=== PATIENT | male | born 1965 | race Caucasian/White ===

== ENCOUNTER 2020-08-22 23:20 | Day surgery (SDCO) | payer OTHER ==
[2020-08-22 23:44] LABS: BASOPHIL 0.3 % (0-2); EOSINOPHIL 0.9 % (0-5); HCT 36.3 % (42.0-52.0); HGB 12.1 g/dl (13.2-18.0); LYMPHOCYTE 9.8 % (15-48); MCH 30.9 pg (25.0-31.0); MCHC 33.3 g/dL (32.0-36.0); MCV 92.6 fL (78.0-100.0); MONOCYTE 4.9 % (0-12); MPV 10.8 fL (6.0-9.5); NEUTROPHIL 83.8 % (41-80); NRBC 0; PLT 220 K/uL (150-400); RBC 3.92 M/uL (4.70-6.00); RDW 14.1 % (11.5-14.0); WBC 9.6 K/uL (4.0-10.5)
[2020-08-22 23:54] LABS: INR 1.09 (0.9-1.2); PROTHROMBIN TIME 13.4 SECONDS (11.4-13.6)
[2020-08-22 23:55] LABS: PTT 30.6 SECONDS (22.2-34.7)
[2020-08-23 00:17] LABS: ALBUMIN 3.7 g/dL (3.4-5.0); BILIRUBIN - TOTAL 0.6 mg/dL (0.2-1.0); BUN/CREAT RATIO (CALC) 12.9 RATIO; CREATININE 1.01 mg/dL (0.67-1.17); GLOBULIN (CALCULATION) 3.1 g/dL; MAGNESIUM 2.1 mg/dL (1.8-2.4); POTASSIUM 3.5 mmol/L (3.5-5.1); TOTAL PROTEIN 6.8 g/dL (6.4-8.2)
[2020-08-23 00:22] LABS: LACTIC ACID 1.8 mmol/L (0.4-1.9)
[2020-08-23 00:23] LABS: CKMB 1.9 ng/mL (0.0-3.6)
[2020-08-23 01:11] LABS: BILIRUBIN NEGATIVE (NEGATIVE); BLOOD NEGATIVE Ery/uL (NEGATIVE); CLARITY CLEAR (CLEAR); COLOR YELLOW (YELLOW); GLUCOSE (U) NORMAL (NORMAL); LEUKOCYTES NEGATIVE Leu/uL (NEGATIVE); NITRITE NEGATIVE (NEGATIVE); PROTEIN NEGATIVE (NEGATIVE); UROBILINOGEN 0.2 mg/dL (0.2-1.0); pH 6.5 (5.0-9.0)
[2020-08-23] MEDS ORDERED: MELATONIN5 M2 PO (13:51)
[2020-08-23] MEDS ORDERED: NEURONTIN100 MG PO (13:52)
[2020-08-23] MEDS ORDERED: BRILINTA90 MG PO (13:53)
[2020-08-23] MEDS ORDERED: ASPIRIN CHEWABL81 MG PO (13:53)
[2020-08-23] MEDS ORDERED: RANEXA500 MG PO (13:54)
[2020-08-23] MEDS ORDERED: ELAVIL50 MG PO (13:54)
[2020-08-23] MEDS ORDERED: QUETIAPINE FUM300 M1 PO (13:56)
[2020-08-23] MEDS ORDERED: COLESTIPOL HCL1 GM PO (13:58)
[2020-08-23] MEDS ORDERED: LEXAPRO20 M1 PO (13:59)
[2020-08-23] MEDS ORDERED: LOPRESSOR50 MG PO (14:01)
[2020-08-23] MEDS ORDERED: ZESTRIL5 MG PO (14:02)
[2020-08-23] MEDS ORDERED: BUSPAR5 MG PO (14:04)
[2020-08-23] MEDS ORDERED: COLACE100 MG PO (14:05)
[2020-08-23] MEDS ORDERED: LIPITOR40 MG PO (14:05)
[2020-08-24 06:18] LABS: BUN/CREAT RATIO (CALC) 22.9 RATIO; CREATININE 1.09 mg/dL (0.67-1.17); POTASSIUM 4.1 mmol/L (3.5-5.1)
[2020-08-24 06:20] LABS: BASOPHIL 0.1 % (0-2); EOSINOPHIL 0 % (0-5); HCT 38.8 % (42.0-52.0); HGB 12.9 g/dl (13.2-18.0); LYMPHOCYTE 2.3 % (15-48); MCH 30.5 pg (25.0-31.0); MCHC 33.2 g/dL (32.0-36.0); MCV 91.7 fL (78.0-100.0); MONOCYTE 3.3 % (0-12); MPV 11.2 fL (6.0-9.5); NRBC 0; PLT 280 K/uL (150-400); RBC 4.23 M/uL (4.70-6.00); RDW 14.6 % (11.5-14.0)
[2020-08-24 06:21] LABS: NEUTROPHIL 92.7 % (41-80); WBC 22.1 K/uL (4.0-10.5)
[2020-08-24 06:23] LABS: PRO-BNP 2481 pg/mL (<125)
[2020-08-24] MEDS ORDERED: MEDROL 4MG DOSEP4 MG PO (09:09)
[2020-08-24] MEDS ORDERED: FUROSEMIDE 20MG20 MG PO (09:09)
[2020-08-24] MEDS ORDERED: PANTOPRAZOLE SO40 MG PO (09:09)
--- NOTE | 2020-08-24 09:34 | NUR ---
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
--- NOTE | 2020-08-24 11:01 | NUR ---
1100 IV DC'D AT THIS TIME. DISCHARGE INSTRUCTIONS DISCUSSED WITH PT, VERBALIZED UNDERSTANDING. PT TRANSPORTED VIA WHEELCHAIR TO [facility] PER TECH.
== END 2020-08-24 11:02 | disposition home or self-care (01) ==
LOC: FER 23:20 → FTCU 08-23 02:02
PROVIDERS: Emergency Medicine; Internal Medicine; ADMIT Hospitalist
DX: I25.10 Atherosclerotic heart disease of native coronary artery without angina pectoris (principal); J44.1 Chronic obstructive pulmonary disease with (acute) exacerbation; F41.9 Anxiety disorder, unspecified; F32.9 Major depressive disorder, single episode, unspecified; E78.5 Hyperlipidemia, unspecified; F10.11 Alcohol abuse, in remission; G62.9 Polyneuropathy, unspecified; K22.8 Other specified diseases of esophagus; I11.0 Hypertensive heart disease with heart failure; I50.9 Heart failure, unspecified; I25.2 Old myocardial infarction; I08.1 Rheumatic disorders of both mitral and tricuspid valves; I27.20 Pulmonary hypertension, unspecified; Z87.891 Personal history of nicotine dependence; Z79.02 Long term (current) use of antithrombotics/antiplatelets; Z79.82 Long term (current) use of aspirin; Z79.899 Other long term (current) drug therapy; Z88.0 Allergy status to penicillin; Z88.5 Allergy status to narcotic agent; Z95.1 Presence of aortocoronary bypass graft; Z95.5 Presence of coronary angioplasty implant and graft; Z95.810 Presence of automatic (implantable) cardiac defibrillator; Z99.81 Dependence on supplemental oxygen; Z20.828 Contact with and (suspected) exposure to other viral communicable diseases
CPT/HCPCS: 36415; 36600; 71045; 71275; 80048; 80053; 80061; 81003; 82553; 82803; 83605; 83735; 83874; 83880; 84484; 85025; 85610; 85730; 87040; 93005; 94010; 94640; 94664; G0378; J1170; J1650; J1940; J2060; J2550; J2930; Q9967; U0002

== ENCOUNTER 2021-08-29 13:31 | Emergency (ER) | payer OTHER ==
[~2021-08-29 13:31] MED LIST: ASPIRIN CHEWABL81 MG PO; BRILINTA90 MG PO; BUSPAR5 MG PO; COLACE100 MG PO; COLESTIPOL HCL1 GM PO; ELAVIL50 MG PO; FUROSEMIDE 20MG20 MG PO; LEXAPRO20 M1 PO; LIPITOR40 MG PO; LOPRESSOR50 MG PO; MEDROL 4MG DOSEP4 MG PO; MELATONIN5 M2 PO; NEURONTIN100 MG PO; PANTOPRAZOLE SO40 MG PO; QUETIAPINE FUM300 M1 PO; RANEXA500 MG PO; ZESTRIL5 MG PO
[2021-08-29 13:48] LABS: BASOPHIL 0.5 % (0-2); EOSINOPHIL 1.1 % (0-5); HCT 42.8 % (42.0-52.0); HGB 14.3 g/dl (13.2-18.0); LYMPHOCYTE 27.8 % (15-48); MCH 30.5 pg (25.0-31.0); MCHC 33.4 g/dL (32.0-36.0); MCV 91.3 fL (78.0-100.0); MONOCYTE 8.5 % (0-12); MPV 10.5 fL (6.0-9.5); NEUTROPHIL 61.9 % (41-80); NRBC 0; PLT 221 K/uL (150-400); RBC 4.69 M/uL (4.70-6.00); RDW 13.1 % (11.5-14.0); WBC 5.5 K/uL (4.0-10.5)
[2021-08-29 14:09] LABS: CREATININE 1.1 mg/dL (0.67-1.17); POTASSIUM 3.8 mmol/L (3.5-5.1)
[2021-08-29 16:31] LABS: CORONAVIRUS 2019 SARS-COV-2 NEGATIVE (NEGATIVE); INFLUENZA A NAA NEGATIVE (NEGATIVE)
[2021-08-29] MEDS ORDERED: VOLTAREN ARTHRI20 GM TOP (18:12)
[2021-08-29] MEDS ORDERED: PERCOCET 5-3251 EACH PO (18:12)
== END 2021-08-29 18:33 | disposition home or self-care (01) ==
LOC: FER 13:31
PROVIDERS: Internal Medicine
DX: I20.0 Unstable angina (principal); K21.9 Gastro-esophageal reflux disease without esophagitis; I11.0 Hypertensive heart disease with heart failure; I50.9 Heart failure, unspecified; J44.9 Chronic obstructive pulmonary disease, unspecified; Z87.891 Personal history of nicotine dependence; Z88.0 Allergy status to penicillin; Z88.5 Allergy status to narcotic agent; Z88.8 Allergy status to other drugs, medicaments and biological substances; Z20.822 Contact with and (suspected) exposure to COVID-19
CPT/HCPCS: 36415; 71045; 71275; 80048; 84484; 85025; 93005; J1170; U0002